=== PATIENT | male | born 1940 | race Caucasian/White ===

== ENCOUNTER → 2022-01-14 | Outpatient (CLI) | payer MEDICARE, BC ==
--- NOTE | 2022-01-16 16:14 | US ---
EXAMINATION TYPE: US kidneys/renal and bladder DATE OF EXAM: 01/14/2022 COMPARISON: NONE CLINICAL HISTORY: R13.0 GROSS HEMATURIA. Hematuria EXAM MEASUREMENTS: Right Kidney: 10.6 x 7.1 x 5.3 cm Left Kidney: 11.0 x 7.1 x 5.6 cm Right Kidney: Cystic area seen in mid/upper pole measuring 1.4 x 1.4 x 1.2 cm, no hydronephrosis seen Left Kidney: No hydronephrosis or masses seen Bladder: wnl Bilateral Jets seen: Yes Incidental finding prostate seen measuring 4.7 cm Incidental 1.2 cm simple appearing thin-walled cyst upper to midpole level right kidney. No hydroneph rosis seen bilaterally. No concerning solid or cystic renal masses bilaterally. The urinary bladder is adequately distended. Bilateral ureteral jets are seen. Prominent prostate suggesting BPH noted. IMPRESSION: Source of hematuria not identified. If symptoms persist further investigation with CT uro gram would be warranted.
== END | disposition home or self-care (01) ==
LOC: RADUSWWP 10:36
PROVIDERS: ATTEND Urology
DX: R31.0 Gross hematuria (principal)
CPT/HCPCS: 76770